=== PATIENT | male | born 1960 | race Caucasian/White ===

== ENCOUNTER 2021-12-21 07:01 | Day surgery (SDC) | payer OTHER ==
[~2021-12-21] VITALS: Ht 170.2 cm; Wt 49.9 kg
[~2021-12-21 07:01] MED LIST: SPIRIVA RESPIMAT4 GM IH
== END 2021-12-21 15:00 | disposition home or self-care (01) ==
LOC: EDBD 07:01 → CIR.AMB 07:01
PROVIDERS: ATTEND Specialist
DX: C34.92 Malignant neoplasm of unspecified part of left bronchus or lung (principal); J44.9 Chronic obstructive pulmonary disease, unspecified; F14.90 Cocaine use, unspecified, uncomplicated; F17.210 Nicotine dependence, cigarettes, uncomplicated; C77.9 Secondary and unspecified malignant neoplasm of lymph node, unspecified